=== PATIENT | female | born 1975 | race Caucasian/White ===

== ENCOUNTER 2023-07-27 13:01 | Outpatient (AMB) | payer OTHER, SELFPAY ==
--- NOTE | 2023-07-27 13:02 | A.OFFVIS_ITS ---
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 She was referred by PCP for pulmonary evaluation for recurrent pneumonia. She reports having pneumonia every January for the last 15+ years and after having children 10 years ago she has had pneumonia every June as well. She has been tested multiple times when pneumonia occurs, testing positive to mycoplasma pneumonia. She reports symptoms of malaise, bronchospastic cough lasts about a month. She typically responds well to azithromycin for 21 days with slow resolution of symptoms over 2 months. She reports symptoms began a few weeks ago and was treated with azithromycin however after 9 days of treatment, symptoms worsened with night sweats. She was then transition to doxycycline and has noticed significant improvement in symptoms. She continues to report dry cough and fatigue. She denies any prior history of asthma or seasonal allergies. 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 She reports both children with asthma. She denies any prior workup for immune deficiency. [facility] Social History (Updated 07/27/23 @ 13:10 by Keshia Monet LPN) Patient Tobacco Use Status: Never used Tobacco Review of Systems Const Denies chills, Denies excessive sweating, Denies fever(s) and Denies headache(s) Eyes Denies dry eyes, Denies irritation and Denies itchy eyes ENT Reports Normal hearing present, Denies headache(s), Denies nasal congestion, Denies nasal discharge, Denies post nasal drip and Denies sore throat Card Denies chest pain, Denies chest pain at rest, Denies chest pain with activity, Denies claudication, Denies leg edema, Denies dyspnea, Denies dyspnea on exertion, Denies orthopnea and Denies paroxysmal nocturnal dyspnea Resp Denies chest congestion, Denies excessive phlegm production, Denies pain on inspiration, Denies pain with cough, Denies dyspnea, Denies dyspnea on exertion, Denies stridor and Denies wheezing Musc Denies myalgias Neuro Reports Normal hearing present and Denies headache(s) Endo Denies excessive sweating Cisco/Lymph Denies lymphadenopathy Aller/Immun Denies itchy eyes, Denies seasonal rhinorrhea and Denies wheezing Physical Exam Vital Signs: Last Vital Signs Pulse 76 07/27/23 13:03 BP 116/66 07/27/23 13:03 Pulse Ox 100 07/27/23 13:03 Oxygen Delivery Method Room Air 07/27/23 13:03 BMI result Body Mass Index 21.0 Const General: cooperative, comfortable, no acute distress, well developed and alert Orientation/consciousness: patient oriented x3 Limitations: no limitations HEENT Head: Yes normal to inspection, Yes normocephalic and Yes atraumatic Ears: hearing grossly normal bilaterally and external ears normal Eyes General: appearance normal, both eyes and all related structures Eyelids: Yes eyelids normal Sclerae: sclerae normal EOM: EOMs intact bilaterally Neck Neck: Yes normal visual inspection and Yes no lymphadenopathy Lymphatic: no lymphadenopathy noted Chest Chest palpation & inspection: normal inspection of the chest Resp Other: postexhalation cough Effort & Inspection: normal respiratory effort, able to speak in complete sentences, no audible wheezes, no stridor, not tachypneic, no tripod positioning and no use of accessory muscles Auscultation: clear to auscultation bilaterally Cardio Jugular venous distension: no JVD Rate: regular rate Rhythm: regular rhythm Skin Other: warm, dry General skin exam: no rashes or lesions noted Neuro General: patient oriented x3 Cranial nerves: Yes Normal hearing present Cognition (Neuro): normal cognition Gait exam (Neuro): Normal gait present Extrem General: Yes normal to inspection, Yes capillary refill normal, Yes no clubbing, cyanosis or edema and Yes no pedal edema Psych Appearance: grossly normal and well kempt Speech and movement: Normal speech and movement present and Clear speech present Affect: normal affect Attitude: cooperative Thought process: Normal thought process present Thought content: Normal thought content present Insight: Good insight present (Psych) Judgement: Good judgement present (Psych) Assessment & Plan Assessment & Plan (1) Recurrent pneumonia: Code(s): J18.9 - Pneumonia, unspecified organism (2) Mycoplasma pneumonia: Code(s): J15.7 - Pneumonia due to Mycoplasma pneumoniae (3) Reactive airway disease: Code(s): J45.909 - Unspecified asthma, uncomplicated Plan Divina presents with 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 Previously responded well to azithromycin x 21 days now on doxycycline with improvement in symptoms. She sti ll reports persistent dry cough, however improving and post exhalation cough on exam. Will send Symbicort for reactive airway disease. Will also send for PFT. Patient reports PCP had ordered chest x-ray, will review results when completed. Prior chest x-rays have been unremarkable. Will consider chest CT. Will also send for immune deficiency workup and obtain recent labs performed by PCP. All questions were answered and patient is agreement of plan. Will follow-up to review results. Orders: Orders Immunoglobulin G Subclasses Today J18.9 - Pneumonia, unspecified organism Immunoglobulins,IgG IgA IgM Today J18.9 - Pneumonia, unspecified organism PFT pulmonary function test Today J45.909 - Unspecified asthma, uncomplicated Medications: New budesonide-formoterol 80-4.5 mcg/actuation (Symbicort) 1 inh inhalation BID 10.2 grams 6RF Coding Level of Care Code New Pt Level 4 (58875) Diagnoses Recurrent pneumonia J18.9 Mycoplasma pneumonia J15.7 Reactive airway disease J45.909
[2023-07-27 13:03] VITALS: BP 116/66; PULSE 76; O2SAT 100; BMI 21.0
== END 2023-07-27 13:39 | disposition home or self-care (01) ==
PROVIDERS: PCP Physician Assistant Medical; Visit Provider Nurse Practitioner Family
DX: J18.9 Pneumonia, unspecified organism (principal); J15.7 Pneumonia due to Mycoplasma pneumoniae; J45.909 Unspecified asthma, uncomplicated
CPT/HCPCS: 99204

== ENCOUNTER → 2023-07-27 13:01 | Outpatient (BNVA) | payer OTHER, SELFPAY | PROVIDERS: PCP Physician Assistant Medical; Visit Provider Nurse Practitioner Family ==

== ENCOUNTER 2023-09-12 14:44 | Outpatient (REF) | payer OTHER, SELFPAY ==
[2023-09-12 10:53] VITALS: PULSE 66; RESP 16; O2SAT 97
--- NOTE | 2023-09-12 16:01 | PFT_ITS ---
INDICATION: PNEUMONIA Spirometry [FEV1 to FVC 72%; FEV1 2.46 L; FVC 3.39 L. no significant response to bronchodilators noted. Maximum voluntary ventilation 109% predicted] Lung Volumes [Total lung capacity 86% predicted] Diffusion Capacity [Diffusing capacity DLCO 92% predicted] Comparisons [none] Interpretation [No obstructive nor restrictive ventilatory defects identified. No significant response to bronchodilators noted. Normal maximum voluntary ventilation. Lung volumes are within normal limits. Diffusing capacity also within normal limits. Clinical correlation warranted.] MTDD
== END 2023-09-12 14:45 | disposition home or self-care (01) ==
LOC: HO.RESP 14:44
PROVIDERS: Visit Provider Nurse Practitioner Family
DX: J45.909 Unspecified asthma, uncomplicated (principal)
CPT/HCPCS: 94010; 94640; 94727; 94729

== ENCOUNTER → 2023-09-12 16:01 | Outpatient (BNV) | payer OTHER, SELFPAY | PROVIDERS: Visit Provider Hospitalist | DX: J18.9 Pneumonia, unspecified organism (principal) | CPT/HCPCS: 94060; 94727; 94729 ==

== ENCOUNTER 2023-09-16 15:22 | Outpatient (AMB) | payer OTHER, SELFPAY ==
--- NOTE | 2023-09-16 15:25 | A.OFFVIS_ITS ---
Vital Signs 09/16/23 15:26 Height 5 ft 7 in Weight 133 lb 4 oz BMI 20.9 BP 102/60 Blood Pressure Location Rt brachial Position Sitting Pulse 56 Pulse Source Pulse Oximeter Pulse Oximetry (%) 96 Oxygen Delivery Method Room Air Intake Visit Reasons: mycoplasm pneumonia Allergies Penicillins Allergy (Mild, Verified 09/16/23 15:29) Hives HPI HPI mycoplasm pneumonia: Details: Divina is a pleasant 47 year old female, never smoker with no significant past medical history. She was referred by PCP for pulmonary evaluation for recurrent pneumonia. She reports having pneumonia every January for the last 15+ years and after having children 10 years ago she has had pneumonia every June as well. She has been tested multiple times when pneumonia occurs, testing positive to mycoplasma pneumonia. She reports symptoms of malaise, bronchospastic cough lasts about a month. She typically responds well to azithromycin for 21 days with slow resolution of symptoms over 2 months. She reports symptoms began a few weeks ago and was treated with azithromycin however after 9 days of treatment, symptoms worsened with night sweats. She was then transition to doxycycline and has noticed significant improvement in symptoms. Today she presents to review labs. She reports symptoms have resolved with d oxycyline and feels as though she is back to baseline. [facility] Social History Patient Tobacco Use Status: Never used Tobacco Review of Systems Const Denies chills, Denies excessive sweating, Denies fever(s), Denies headache(s) and Denies night sweats Eyes Denies dry eyes, Denies irritation and Denies itchy eyes ENT Reports Normal hearing present, Denies headache(s), Denies nasal congestion, Denies nasal discharge, Denies post nasal drip and Denies sore throat Card Denies chest pain, Denies chest pain at rest, Denies chest pain with activity, Denies claudication, Denies leg edema, Denies dyspnea, Denies dyspnea on exertion, Denies orthopnea and Denies paroxysmal nocturnal dyspnea Resp Denies chest congestion, Denies cough, Denies excessive phlegm production, Denies pain on inspiration, Denies pain with cough, Denies dyspnea, Denies dyspnea on exertion, Denies stridor and Denies wheezing Musc Denies myalgias Neuro Reports Normal hearing present and Denies headache(s) Endo Denies excessive sweating Cisco/Lymph Denies lymphadenopathy Aller/Immun Denies itchy eyes, Denies seasonal rhinorrhea and Denies wheezing Physical Exam Vital Signs: Last Vital Signs Pulse 56 09/16/23 15:26 BP 102/60 09/16/23 15:26 Pulse Ox 96 09/16/23 15:26 Oxygen Delivery Method Room Air 09/16/23 15:26 BMI result Body Mass Index 20.9 Const General: cooperative, comfortable, no acute distress, well developed and alert Orientation/consciousness: patient oriented x3 Limitations: no limitations HEENT Head: Yes normal to inspection, Yes normocephalic and Yes atraumatic Ears: hearing grossly normal bilaterally and external ears normal Eyes General: appearance normal, both eyes and all related structures Eyelids: Yes eyelids normal Sclerae: sclerae normal EOM: EOMs intact bilaterally Neck Neck: Yes normal visual inspection and Yes no lymphadenopathy Lymphatic: no lymphadenopathy noted Chest Chest palpation & inspection: normal inspection of the chest Resp Other: postexhalation cough Effort & Inspection: normal respiratory effort, able to speak in complete sentences, no audible wheezes, no stridor, not tachypneic, no tripod positioning and no use of accessory muscles Auscultation: clear to auscultation bilaterally Cardio Jugular venous distension: no JVD Rate: regular rate Rhythm: regular rhythm Skin Other: warm, dry General skin exam: no rashes or lesions noted Neuro General: patient oriented x3 Cranial nerves: Yes Normal hearing present Cognition (Neuro): normal cognition Gait exam (Neuro): Normal gait present Extrem General: Yes normal to inspection, Yes capillary refill normal, Yes no clubbing, cyanosis or edema and Yes no pedal edema Psych Appearance: grossly normal and well kempt Speech and movement: Normal speech and movement present and Clear speech present Affect: normal affect Attitude: cooperative Thought process: Normal thought process present Thought content: Normal thought content present Insight: Good insight present (Psych) Judgement: Good judgement present (Psych) Assessment & Plan Assessment & Plan (1) Recurrent pneumonia: Code(s): J18.9 - Pneumonia, unspecified organism Category: Medical (2) Mycoplasma pneumonia: Code(s): J15.7 - Pneumonia due to Mycoplasma pneumoniae Category: Medical Plan Reviewed recent labs which were not suggestive of immunodeficiency. We discussed further imaging to rule out any malformations contributing to recurrent infections, but patient would like to hold off at this time. She is agreeable to call when symptoms return to obtain labs as well as imaging in the acute period. Consider immunology referral. All questions were answered and patient is agreement of plan. Will follow-up PRN. Coding Level of Care Code Est Pt Level 3 (40012) Diagnoses Recurrent pneumonia J18.9 Mycoplasma pneumonia J15.7
[2023-09-16 15:26] VITALS: BP 102/60; PULSE 56; O2SAT 96; BMI 20.9
== END 2023-09-16 15:47 | disposition home or self-care (01) ==
PROVIDERS: PCP Physician Assistant Medical; Visit Provider Nurse Practitioner Family
DX: J18.9 Pneumonia, unspecified organism (principal); J15.7 Pneumonia due to Mycoplasma pneumoniae
CPT/HCPCS: 99213

== ENCOUNTER → 2023-09-16 15:22 | Outpatient (BNVA) | payer OTHER, SELFPAY | PROVIDERS: PCP Physician Assistant Medical; Visit Provider Nurse Practitioner Family ==